=== PATIENT | female | born 1995 | race Caucasian/White ===

== ENCOUNTER → 2022-01-23 11:17 | Outpatient (CLI) | payer BC, SELFPAY ==
--- NOTE | ~2022-01-23 | XR_ITS ---
EXAMINATION: XR chest 2V 01/23/2022 11:39 INDICATION: Productive cough PROCEDURE: 2 view chest COMPARISON: No prior studies for comparison. FINDINGS: The lungs are clear. The cardiomediastinal silhouette is within normal limits. There are no pleural effusions. There is no pneumothorax suspected. IMPRESSION: 1: NO ACUTE CARDIOPULMONARY DISEASE. Reviewed, dictated and finalized at location A.
== END ==
PROVIDERS: PCP Emergency Medicine; Visit Provider Emergency Medicine
DX: R05.9 Cough, unspecified (principal)
CPT/HCPCS: 71046

== ENCOUNTER 2022-01-31 10:47 | Outpatient (CLI) | payer BC, SELFPAY ==
[2022-01-31 11:21] LABS: Basophils Percent Auto 0.6 % (0.2-1.2); Eosinophils Absolute Auto 0.1 K/mm3 (0-0.3); Eosinophils Percent Auto 1.4 % (0-4.4); Hematocrit 40.1 % (37.0-47.0); Hemoglobin 13.2 g/dL (12.0-15.0); Immature Granulocyte Absolute 0.02 K/mm3 (0.00-0.031); Immature Granulocyte Percent A 0.3 % (0-0.5); Lymphocytes Absolute Auto 2.69 K/mm3 (0.9-3.2); Lymphocytes Percent Auto 43.3 % (18.3-44.2); Mean Corpuscular HGB Conc 32.9 g/dl (32-36); Mean Corpuscular Hemoglobin 28.6 pg (26-34); Mean Corpuscular Volume 86.8 fl (80-100); Mean Platelet Volume 9.6 fl (7.4-10.4); Monocytes Absolute Auto 0.5 K/mm3 (0.1-0.6); Monocytes Percent Auto 8.2 % (2.6-8.5); Neutrophils Absolute Auto 2.9 K/mm3 (1.3-6.7); Neutrophils Percent Auto 46.2 % (45.5-73.1); Platelet Count Result 286 k/mm3 (150-375); Red Blood Count 4.62 M/mm3 (4.2-5.4); Red Cell Distribution Width 15.2 % (11.5-14.5); White Blood Count 6.2 K/mm3 (4.5-10.0)
[2022-01-31 14:02] LABS: Iron 154 ug/dL (37-170)
[2022-01-31 14:12] LABS: Alanine Aminotransferase 10 U/L (6-35); Albumin Level 4.2 g/dL (3.5-5.1); Alkaline Phosphatase 57 U/L (38-126); Anion Gap 4 mmol/L (8-16); Aspartate Amino Transferase 20 U/L (14-36); Bilirubin,Total 0.4 mg/dL (0.2-1.3); Blood Urea Nitrogen 10 mg/dL (7-17); Calcium 8.7 mg/dL (8.4-10.2); Carbon Dioxide 28 mmol/L (22-30); Chloride 106 mmol/L (98-107); Estimated Glomerular Filt Rate > 60; Glucose 89 mg/dL (65-110); Percent Iron Saturation 42 % (20-50); Potassium 4.4 mmol/L (3.4-5.0); Sodium 138 mmol/L (137-145)
== END 2022-01-31 10:48 | disposition home or self-care (01) ==
LOC: ANHLAB 10:48
PROVIDERS: PCP Emergency Medicine; Visit Provider Internal Medicine Hematology & Oncology
DX: D64.9 Anemia, unspecified (principal)
CPT/HCPCS: 36415; 80053; 82607; 82728; 83540; 83550; 85025

== ENCOUNTER 2022-02-14 11:24 | Outpatient (CLI) | payer BC, SELFPAY ==
--- NOTE | ~2022-02-14 | XR_ITS ---
EXAMINATION: XR chest 2V 02/14/2022 11:48 INDICATION: Nonproductive cough. Asthma. PROCEDURE: 2 view chest COMPARISON: 01/23/2022 FINDINGS: The lungs are clear. The cardiomediastinal silhouette is within normal limits. There are no pleural effusions. There is no pneumothorax suspected. IMPRESSION: 1: NO ACUTE CARDIOPULMONARY DISEASE. Reviewed, dictated and finalized at location A.
== END 2022-02-14 11:25 | disposition home or self-care (01) ==
LOC: ANHIMG 11:31
PROVIDERS: PCP Emergency Medicine; Visit Provider Emergency Medicine
DX: U07.1 COVID-19 (principal); J45.909 Unspecified asthma, uncomplicated; F17.210 Nicotine dependence, cigarettes, uncomplicated
CPT/HCPCS: 71046

== ENCOUNTER → 2022-02-15 00:01 | Outpatient (CLI) | payer BC, SELFPAY ==
[2022-02-15 10:55] LABS: SARS-CoV-2 RNA PCR Negative
== END ==
PROVIDERS: PCP Emergency Medicine; Visit Provider Emergency Medicine
DX: R05.9 Cough, unspecified (principal); Z20.822 Contact with and (suspected) exposure to COVID-19
CPT/HCPCS: C9803; U0003; U0005

== ENCOUNTER 2022-09-08 10:39 | Emergency (ER) | payer BC, SELFPAY ==
--- NOTE | ~2022-09-08 | CT_ITS ---
EXAMINATION: CT abdomen pelvis w con DATE: 09/08/2022 13:30 INDICATION: Nausea, vomiting and diarrhea. TECHNIQUE: Computed tomography (CT) of the abdomen and pelvis was performed with 100 cc Omnipaque 350 intravenous contrast. The dose-length product was 173.96 mGy-cm. Automated exposure control and iter ative reconstruction technique were employed. COMPARISON: No prior studies for comparison. . FINDINGS: Lung bases are unremarkable. Heart size normal. No significant pleural or pericardial effus ion. No significant vascular abnormality. No lymphadenopathy. There are surgical changes at the cecum . There is fluid throughout the colon, consistent with diarrhea. No obstruction. No free air. There i s free fluid in the pelvis. There are bilateral ovarian cysts measuring up to 3.6 cm on the right and 2.9 cm on the left. The liver, spleen, pancreas, adrenal glands and kidneys are unremarkable. Gallbladder is present. IMPRESSION: 1. Nonobstructive bowel pattern with fluid throughout the colon, consistent with diarrhea. 2: Bilateral ovarian cysts, largest on the right measuring up to 3.6 cm. Reviewed, dictated and finalized at location B. 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 Nonobstructive bowel pattern with fluid throughout the colon, consistent wit h diarrhea. 2: Bilateral ovarian cysts, largest on the right measuring up to 3.6 cm.
[2022-09-08 11:10] VITALS: BP 100/57; PULSE 62; RESP 16; TEMP 36.6; O2SAT 100
--- NOTE | 2022-09-08 12:27 | ED.NAVMDI ---
HPI - Nausea/Vomiting/Diarrhea General Chief complaint: Nausea/Vomiting/Diarrhea Stated complaint: nausea, vomiting, and diarrhea Time Seen by Provider: 09/08/22 12:18 Source: patient and family History of Present Illness HPI Narrative: 27 years old white female came to the emergency room by private car complaining of nausea, vomiting and diarrhea since last night at least once every hour. Associated with chills, history of Crohn disease. She denies sick contact. Or abdominal pain. Related Data Allergies Allergy/AdvReac Type Severity Reaction Status Date / Time amoxicillin [From Augmentin] Allergy Hives Verified 09/08/22 11:35 clavulanic acid Allergy Hives Verified 09/08/22 11:35 [From Augmentin] sea food Allergy Anaphylaxis Uncoded 09/08/22 11:35 Review of Systems Review of Systems: All systems reviewed & are unremarkable except as noted in HPI and below Exam Narrative: General appearance: Well-developed, well-nourished Skin: Normal color Head: Normocephalic, nontraumatic Eyes: Clear conjunctiva ENT: Oropharynx normal, ears normal, nose normal Neck: Supple, nontender Chest and respiratory: Airway patent, no respiratory distress, no accessory muscle use Heart: Regular rate/rhythm Abdomen: Soft, severe tenderness right lower quadrant with slight guarding and rebound Vascular: Normal peripheral pulses, normal capillary refill. 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, no gross motor deficit Course Vital Signs Vital signs: Vital Signs Temperature 36.6 C 09/08/22 11:10 Pulse Rate 62 09/08/22 11:10 Respiratory Rate 16 09/08/22 11:10 Blood Pressure 100/57 L 09/08/22 11:10 Pulse Oximetry 100 09/08/22 11:10 Oxygen Delivery Room Air 09/08/22 11:10 Temperature 36.6 C 09/08/22 11:10 Pulse Rate 62 09/08/22 11:10 Respiratory Rate 16 09/08/22 11:10 Blood Pressure 100/57 L 09/08/22 11:10 Pulse Oximetry 100 09/08/22 11:10 Oxygen Delivery Room Air 09/08/22 11:10 MDM - Nausea/Vomiting/Diarrhea MDM Narrative Medical decision making narrative: Patient presents with nausea vomiting and diarrhea, almost once episode of age every hour since last night, she denies sick exposure, physical examination showed generally weak patient with right lower quadrant tenderness, history of Crohn's. She denies any bloody diarrhea. Gastroenteritis, electrolyte imbalance, dehydration, Crohn's flare are my concern. Labs, CT abdomen pelvis with IV contrast, normal saline of 2 L IV, Zofran 4 mg IV, Reglan 10 mg IV, Benadryl 50 mg IV ordered. Blood work-up showed no acute abnormalities, no dehydration no electrolyte imbalance CT abdomen and pelvis with IV contrast showed nonobstructive bowel pattern with fluid throughout the colon consistent with diarrhea. Gastroenteritis is my concern. Patient gradually started feeling better, able to keep fluids and crackers down. Agreed with discharge. My plan to discharge patient on Imodium, Zofran and 2 days of work. The pt was discharged to home.the pt,s condition upon discharge was fair,education was provided to the pt in reference to the final impression,discharge study results,treatment,prognosis and need for follow up . Differential Diagnosis Differential diagnosis: Likely food poisoning, gastroenteritis, dehydration and other (Crohn's flare) Lab Data 09/08/22 12:39 09/08/22 12:39 Labs: Lab Results 09/08/22 09/08/22 Range/Units 12:39 12:39 WBC 12.6 H (4.5-10.0) K/mm3 RBC 4.37 (4.2-5.4) M/mm3 Hgb 12.5 (12.0-15.0) g/dL Hct 37.8 (37.0-47.0) % MCV 86.5 (80-100)
[2022-09-08 12:46] LABS: Basophils Percent Auto 0.2 % (0.2-1.2); Hematocrit 37.8 % (37.0-47.0); Hemoglobin 12.5 g/dL (12.0-15.0); Immature Granulocyte Absolute 0.07 K/mm3 (0.00-0.031); Immature Granulocyte Percent A 0.6 % (0-0.5); Lymphocytes Absolute Auto 0.26 K/mm3 (0.9-3.2); Lymphocytes Percent Auto 2.1 % (18.3-44.2); Mean Corpuscular HGB Conc 33.1 g/dl (32-36); Mean Corpuscular Hemoglobin 28.6 pg (26-34); Mean Corpuscular Volume 86.5 fl (80-100); Mean Platelet Volume 9.7 fl (7.4-10.4); Monocytes Absolute Auto 0.5 K/mm3 (0.1-0.6); Monocytes Percent Auto 3.9 % (2.6-8.5); Neutrophils Absolute Auto 11.8 K/mm3 (1.3-6.7); Neutrophils Percent Auto 93.2 % (45.5-73.1); Platelet Count Result 244 k/mm3 (150-375); Red Blood Count 4.37 M/mm3 (4.2-5.4); Red Cell Distribution Width 16.9 % (11.5-14.5); White Blood Count 12.6 K/mm3 (4.5-10.0)
[2022-09-08] MEDS: SODIUM CHLORIDE 0.9% IV 2,000 ML 999 ML IV CONT (12:53)
[2022-09-08] MEDS: ONDANSETRON INJ 4 MG/2 ML VIAL IV PUSH (12:53)
[2022-09-08 12:59] LABS: Alanine Aminotransferase 21 U/L (6-35); Albumin Level 4.9 g/dL (3.5-5.1); Alkaline Phosphatase 68 U/L (38-126); Anion Gap 10 mmol/L (8-16); Aspartate Amino Transferase 36 U/L (14-36); Bilirubin,Total 0.7 mg/dL (0.2-1.3); Blood Urea Nitrogen 16 mg/dL (7-17); Calcium 8.9 mg/dL (8.4-10.2); Carbon Dioxide 25 mmol/L (22-30); Chloride 101 mmol/L (98-107); Estimated CRCL calculation 90 ml/min; Estimated Glomerular Filt Rate > 60; Glucose 111 mg/dL (65-110); Potassium 4.4 mmol/L (3.4-5.0); Sodium 136 mmol/L (137-145)
[2022-09-08 13:35] LABS: Hypochromasia 3+ (NORMAL); Platelet Estimate Adequate (Adequate); Schistocytes None Seen (NORMAL); Tear Drop Cells 1+ (NORMAL)
[2022-09-08] MEDS: METOCLOPRAMIDE HCL INJ 10 MG/2 ML VIAL IV PUSH (15:09)
[2022-09-08] MEDS: diphenhydrAMINE HCl INJ 50 MG/ML VIAL IV PUSH (15:09)
== END 2022-09-08 16:37 | disposition home or self-care (01) ==
PROVIDERS: Emergency Provider Emergency Medicine; PCP Emergency Medicine
DX: K52.9 Noninfective gastroenteritis and colitis, unspecified (principal); K50.90 Crohn's disease, unspecified, without complications; N83.202 Unspecified ovarian cyst, left side; N83.201 Unspecified ovarian cyst, right side
CPT/HCPCS: 36415; 74177; 80053; 85025; 96361; 96374; 96375; 99284; J1200; J2405; J2765; J7030; Q9967